=== PATIENT | female | born 1955 | race African-American/Black ===

== ENCOUNTER 2018-03-27 18:57 | Inpatient (IN) | payer OTHER ==
[~2018-03-27 18:57] MED LIST: Iopamidol 370 76% 100 ML VIAL ONE
[2018-03-27 20:01] LABS: INR-International Normal Ratio 1.5; PTT 36.8 SEC (22.9-36.1); Prothrombin Time 17.9 SEC (12.0-14.7)
[2018-03-27 20:04] LABS: #Basophils 0.2 thou/uL (0.0-0.2); #Eosinphils 0.2 thou/uL (0.0-0.7); #Lymphocytes 1.7 thou/uL (1.20-3.40); #Monocytes 0.7 thou/uL (0.11-0.59); #Neutrophils 3.4 thou/uL (1.40-6.50); %Basophils 2.5 % (0.0-1.0); %Eosinophils 3.5 % (0.0-10.0); %Lymphocytes 27.2 % (21.0-51.0); %Monocytes 11.9 % (0.0-10.0); Hemoglobin 11.2 g/dL (12.0-16.0); Mean Corpuscular HGB CONC 34.2 g/dL (32.0-36.0); Mean Corpuscular Hemoglobin 28.6 pg (27.0-31.0); Mean Corpuscular Volume 83.8 fL (78.0-98.0); Mean Platelet Volume 9.7 fL (7.4-10.4); Platelet Count 217 thou/uL (130-400); RBC Distribution Width 12.5 % (11.5-14.5); Red Blood Cell (RBC) Count 3.92 mill/uL (4.20-5.40); White Blood Cell (WBC) Count 6.1 thou/uL (4.8-10.8)
[2018-03-27 20:10] LABS: ALT (SGPT) 11 U/L (8-55); AST (SGOT) 19 U/L (5-34); Albumin 3.6 g/dL (3.5-5.0); Alkaline Phosphatase 87 U/L (40-150); Anion Gap 12 mmol/L (10-20); BUN (Urea Nitrogen) 19 mg/dL (9.8-20.1); Bilirubin, Total 0.4 mg/dL (0.2-1.2); Calc. Creatinine Clearance 0 mL/min (70-130); Carbon Dioxide 23 mmol/L (22-29); Chloride 110 mmol/L (98-107); Estimated GFR-MDRD 87; Globulin 3.3 g/dL (2.4-3.5); Glucose 107 mg/dL (70-105); Potassium 3.6 mmol/L (3.5-5.1); Protein, Total 6.9 g/dL (6.0-8.3); Sodium 141 mmol/L (136-145)
[2018-03-27] MEDS ORDERED: Cyclobenzaprine 10 MG TAB ONE (20:55)
--- NOTE | 2018-03-27 20:55 | CT ---
HISTORY: Left lower quadrant pain. Patient with episodes of hemorrhage. Contrast enhanced CT images of the abdomen and pelvis is obtained. IV contrast was given. Oral contra st was not administered. The lung bases are unremarkable. No evidence of free intraperitoneal air seen. The liver and spleen are unremarkable. The gallbladder is partially contracted. The pancreas is unremarkable. Adrenal glands and kidneys are unremarkable. The duodenum is unremarkable. No dilated loops of small bowel seen. A normal appendix is visualized. Extensive descending and sigmoid colonic diverticulosis is present. I do no see definite evidence of diverticulitis. IMPRESSION: Descending and sigmoid colonic diverticulosis. POS: [facility]
[2018-03-27] MEDS ORDERED: Ondansetron ODT 4 MG TAB SL PRN (23:06)
[2018-03-27] MEDS ORDERED: Ondansetron HCl/PF 4 MG/2 ML Vial IVP PRN (23:06)
[2018-03-27] MEDS ORDERED: Acetaminophen 325 MG TAB PO PRN (23:06)
[2018-03-27 23:20] VITALS: BMI 50.5
[2018-03-28] MEDS ORDERED: Dextrose 5 % And 0.9 % NaCl 1,000 ML IV SCH ×2 (03:30→17:30)
--- NOTE | 2018-03-28 04:14 | HP ---
CHIEF COMPLAINT: GI bleed. HISTORY OF PRESENT ILLNESS: Patient is a 62-year-old -[place] female with a history of chron ic atrial fibrillation, rate controlled on Xarelto, history of asthma, history of obesity, and hypert ension, who came to the hospital with complaints of a GI bleed. Patient stated that patient noticed bright blood per her rectum on night. Patient stated that she had 4 bouts of diarrhea with some clots on night followed by 3-4 bouts of diarrhea with bright blood with clots on Friday . Patient also complained of some left-sided cramping abdominal pain. Patient denies any nausea or vomiting. Patient states that this has never happened to her before. Patient stated her last bowel movement was around 7:00 p.m. last night. Patient states that she did take some ibuprofen sometime t his week, which is the prescription strength ibuprofen, she does not recall the dose of it. PAST MEDICAL HISTORY: 1. Chronic atrial fibrillation on anticoagulation. 2. History of asthma. 3. Morbid obesity. 4. Hypertension. PAST SURGICAL HISTORY: She has had a total abdominal hysterectomy in 1998. MEDICATIONS: I am going off her discharge back in 2017, since patient does not have a list with her right now. Patient takes potassium 20 mEq daily, amlodipine 10 mg daily, Lasix 20 mg twice a day, Fl exeril 5 mg daily p.r.n., carvedilol 25 mg b.i.d., aspirin 81 mg daily, hydralazine 50 mg b.i.d., anna sartan 160 mg b.i.d., Xarelto 20 mg daily, and Singulair 10 mg daily. ALLERGIES: She is allergic to AUGMENTIN and HYDROCODONE. FAMILY HISTORY: No history of early heart disease. SOCIAL HISTORY: She denies any alcohol, drug use, or tobacco use. REVIEW OF SYSTEMS: All negative except for the ones mentioned above in the HPI. PHYSICAL EXAMINATION: VITAL SIGNS: Temperature of 98.1, heart rate of 101, 95% room air, 160/90. GENERAL: She is awake, alert, oriented x3, does not appear in any distress. CARDIOVASCULAR: S1, S2 present. No murmurs, rubs, or gallops. LUNGS: Clear to auscultation, rhonchi or wheezes noted. ABDOMEN: Obese. Bowel sounds are present x2. She has mild pain upon palpation to her left lower qu adrant area. Pedal pulses are present. EXTREMITIES: There is no edema noted to her lower extremities. NEUROLOGIC: No focal neurological deficits noted. SKIN: Intact. No bruises or lesions noted. LABORATORY DATA: She underwent a CAT scan of the abdomen and pelvis with contrast which indicated de scending and sigmoid colon diverticulosis. She has got a white count of 6.1, hemoglobin of 11.2, hem atocrit of 32.9. Chemistry shows sodium of 141, potassium was 3.6, BUN of 19, creatinine 0.81. ASSESSMENT AND PLAN: Patient is a very pleasant 62-year-old female who presents to the hospital with complaints of lower gastrointestinal bleed. 1. Lower gastrointestinal bleed. We will hold the patient's Xarelto for now. Patient was educated on not taking any NSAIDs while on Xarelto this increased the risk of bleeding. We will consult GI. However, patient has not had any bowel movements since 7:00 p.m. last night. We will keep patient n. p.o. We will start her on some gentle hydration, will be careful since patient has a history of mode [id number] tricuspid regurgitation to avoid any fluid overload. 2. History of chronic atrial fibrillation. We will hold off on her blood pressure medications just in case, patient has severe amount of bleeding to avoid any hypotension and we will continue fluids f or now. 3. History of asthma. We will continue her home medications. 4. Deep venous thrombosis prophylaxis. We will put the patient on some SCDs.
[2018-03-28 05:15] LABS: Anion Gap 12 mmol/L (10-20); BUN (Urea Nitrogen) 15 mg/dL (9.8-20.1); Calc. Creatinine Clearance 185 mL/min (70-130); Calcium 8.7 mg/dL (7.8-10.44); Carbon Dioxide 20 mmol/L (22-29); Chloride 110 mmol/L (98-107); Estimated GFR-MDRD Greater than 90; Glucose 102 mg/dL (70-105); Potassium 3.6 mmol/L (3.5-5.1); Sodium 138 mmol/L (136-145)
[2018-03-28] MEDS: Cyclobenzaprine 10 MG TAB PO PRN ×2 (05:32→11:21)
[2018-03-28 05:43] LABS: #Basophils 0.1 thou/uL (0.0-0.2); #Eosinphils 0.2 thou/uL (0.0-0.7); #Lymphocytes 1.8 thou/uL (1.20-3.40); #Monocytes 0.5 thou/uL (0.11-0.59); #Neutrophils 2.4 thou/uL (1.40-6.50); %Basophils 1.5 % (0.0-1.0); %Eosinophils 4.5 % (0.0-10.0); %Lymphocytes 36.4 % (21.0-51.0); %Monocytes 10.2 % (0.0-10.0); %Neutrophils 47.5 % (42.0-75.0); Hemoglobin 10.6 g/dL (12.0-16.0); Mean Corpuscular HGB CONC 32.2 g/dL (32.0-36.0); Mean Corpuscular Hemoglobin 28.7 pg (27.0-31.0); Mean Corpuscular Volume 89.1 fL (78.0-98.0); Mean Platelet Volume 8.9 fL (7.4-10.4); Platelet Count 185 thou/uL (130-400); RBC Distribution Width 13.2 % (11.5-14.5); Red Blood Cell (RBC) Count 3.68 mill/uL (4.20-5.40)
[2018-03-28 09:45] LABS: Hemoglobin 11.2 g/dL (12.0-16.0)
[2018-03-28] MEDS ORDERED: Acetaminophen 500 MG TAB PO SCH (12:45)
[2018-03-28] MEDS: traMADol HCl 50 MG TAB PO PRN (20:31)
[2018-03-28] MEDS: hydrALAZINE 25 MG TAB PO SCH (21:14)
[2018-03-28] MEDS: Carvedilol 25 MG TAB PO SCH (21:14)
[2018-03-28] MEDS: Valsartan 80 MG TAB PO SCH (21:15)
--- NOTE | 2018-03-29 09:02 | CON ---
DATE OF CONSULTATION: 03/28/2018 REFERRING PHYSICIAN: Rupinder Prery M.D., [facility]. REASON FOR CONSULTATION: Abdominal pain, diarrhea, and hematochezia. HISTORY OF PRESENT ILLNESS: Amie Knight is a 62-year-old black female with history of atrial fib rillation on Xarelto. The patient developed acute abdominal pain with diarrhea, hematochezia F riday evening. She came to the ER and hospitalized. The patient's pain is diffuse and cramping in n ature, but more over in left lower quadrant. She never had any abdominal pain before. The patient h ad multiple loose stools and also hematochezia. She came to the ER and hospitalized. She says she h as been taking ibuprofen off and on recently for some back pain. The patient had colonoscopy in the [facility] two years ago and was told to be negative. She was told she should co me back in 10 years for a repeat colonoscopy. The patient does not remember anybody telling that she has any hemorrhoids or diverticulitis. The patient is n.p.o. Her symptoms markedly improved. Her abdominal pain has markedly resolved and she has very minimal pain over the left lower quadrant. She has no stools overnight. She had no more rectal bleeding. Her blood count is stable around 11.2. She had no fever or chills. No other relevant symptoms. ALLERGIES: AUGMENTIN and HYDROCODONE. SOCIAL HISTORY: Patient does not smoke or drink alcohol. MEDICAL ILLNESSES: 1. Obesity. 2. Hypertension. 3. History of asthma and does see Dr. Luna. 4. Atrial fibrillation, on Xarelto. SURGERIES: Status post hysterectomy in 1998. MEDICATIONS: List reviewed. FAMILY HISTORY: There is no family history of any cancer, heart disease, CVA. REVIEW OF SYSTEMS: A 10-point system review. Constitutional: No history of weight loss. No fever. She has good exercise tolerance. Respiratory System: History of asthma, but at the present time, no wheezing, no coughing, no hemoptysis. Cardiovascular System: No chest pain, no palpitation, no d yspnea, orthopnea or PND. Gastrointestinal: Abdominal pain, hematochezia, diarrhea. . Genito urinary: No hematuria, dysuria or frequent urination. Musculoskeletal: History of back pain and oc casional headache. Neuropsychiatry: Unremarkable. PHYSICAL EXAMINATION: GENERAL: Patient is obese, appears very comfortable. She is awake, alert, oriented to time, place a nd person. VITAL SIGNS: She is afebrile, temperature 97.7 degrees Fahrenheit, pulse 88, blood pressure is 166/9 4. HEENT: Conjunctivae clear. NECK: Supple. No adenitis or thyromegaly noted. CLINICAL IMPRESSION: This is a 62-year-old black female hospitalized with abdominal pain, diarrhea a nd hematochezia. She most likely has infectious diarrhea. Her bleeding has stopped. Her blood coun t is actually stable. Admitting hemoglobin 11.2 and today 11.2. Hematocrit 33.3, WBC 6,100, and dl telet count 217,000. Chem-7 is actually pretty normal. Based on the history and physical, I believe she has infectious diarrhea, which seems to have resolved. She had a colonoscopy two years ago and I do not see a reason to repeat a colonoscopy. This was conveyed to the patient and actually agrees with the above recommendation. RECOMMENDATIONS: 1. Regular diet. 2. If she tolerates diet and if she has no clinical symptoms, consider discharge either today or himanshu orrow.
[2018-03-29] MEDS: Cyclobenzaprine 10 MG TAB PO PRN ×2 (09:56→21:12)
[2018-03-29] MEDS: hydrALAZINE 25 MG TAB PO SCH ×2 (09:56→21:14)
[2018-03-29] MEDS: Valsartan 80 MG TAB PO SCH ×2 (09:56→21:13)
[2018-03-29] MEDS: Carvedilol 25 MG TAB PO SCH ×2 (09:57→21:13)
[2018-03-29] MEDS: Amlodipine 10 MG TAB PO SCH (09:57)
[2018-03-29] MEDS: traMADol HCl 50 MG TAB PO PRN ×2 (09:57→21:13)
--- NOTE | 2018-03-29 13:51 | PDOC.PN ---
- Subjective Encounter Start Date: 03/29/18 Encounter Start Time: 13:50 Subjective: no more stools. feels better -: no dizziness/SOB - Objective Resuscitation Status: Resuscitation Status FULL:Full Resuscitation MAR Reviewed: Yes Vital Signs & Weight: Vital Signs (12 hours) Temp Pulse Resp BP BP Pulse Ox 03/29/18 09:57 66 141/80 H 03/29/18 09:56 66 141/80 H 03/29/18 07:10 97.5 F L 66 16 141/80 H 97 03/29/18 03:30 97.5 F L 57 L 17 125/57 L 96 Weight Weight 285 lb I&O: 03/28/18 03/29/18 03/30/18 06:59 06:59 06:59 Intake Total 120 Output Total 400 Balance -280 Result Diagrams: 03/28/18 16:00 03/28/18 04:53 Additional Labs: labs reviewed Phys Exam - Physical Examination Constitutional: NAD HEENT: PERRLA, moist MMs, sclera anicteric, oral pharynx no lesions Neck: no nodes, no JVD, supple, full ROM Respiratory: no wheezing, no rales, no rhonchi, clear to auscultation bilateral Cardiovascular: no significant murmur, no rub, irregular Gastrointestinal: soft, non-tender, no distention, positive bowel sounds Musculoskeletal: no edema, pulses present Neurological: non-focal, normal sensation, moves all 4 limbs Psychiatric: normal affect, A&O x 3 Skin: no rash Dx/Plan (1) Lower GI bleed Code(s): K92.2 - GASTROINTESTINAL HEMORRHAGE, UNSPECIFIED Status: Acute (2) Chronic diastolic heart failure due to valvular disease Code(s): I50.32 - CHRONIC DIASTOLIC (CONGESTIVE) HEART FAILURE; I38 - ENDOCARDITIS, VALVE UNSPECIFIED Status: Chronic (3) Chronic anticoagulation Code(s): Z79.01 - CARE HOME (CURRENT) USE OF ANTICOAGULANTS Status: Chronic Comment: Xarelto on hold for GI bleed (4) Chronic atrial fibrillation Code(s): I48.2 - CHRONIC ATRIAL FIBRILLATION Status: Chronic (5) HTN (hypertension) Code(s): I10 - ESSENTIAL (PRIMARY) HYPERTENSION Status: Chronic Comment: Labile, increase Coreg 25mg BID, may need additional titration of BP regimen (6) Normocytic anemia Code(s): D64.9 - ANEMIA, UNSPECIFIED Status: Chronic - Plan DVT proph w/SCDs Cont to hold xarelto.GI recs noted.? infectious bleed but no stool studies -: not o any antibiotic if suspecting infectiouss? Viral Vs bacterial -: Pt w extensive diverticulosis on CT.also on anticoahulation -: will consult her own GI tomorrow as pt worried to restart xarelto -: Monitor for any more bleed & H/H overnight * .Remain sin a-fib.cont tele monitoring * am labs Review of Systems - Review of Systems Constitutional: negative: fever, chills, sweats, weakness, malaise, other ENT: negative: Ear Pain, Ear Discharge, Nose Pain, Nose Discharge, Nose Congestion, Mouth Pain, Mouth Swelling, Throat Pain, Throat Swelling, Other Respiratory: negative: Cough, Dry, Shortness of Breath, Hemoptysis, SOB with Excertion, Pleuritic Pain, Sputum, Wheezing Cardiovascular: negative: chest pain, palpitations, orthopnea, paroxysmal nocturnal dyspnea, edema, light headedness, other Gastrointestinal: negative: Nausea, Vomiting, Abdominal Pain, Diarrhea, Constipation, Melena, Hematochezia, Other Genitourinary: negative: Dysuria, Frequency, Incontinence, Hematuria, Retention , Other Musculoskeletal: negative: Neck Pain, Shoulder Pain, Arm Pain, Back Pain, Hand Pain, Leg Pain, Foot Pain, Other Neurological: negative: Weakness, Numbness, Incoordination, Change in Speech, Confusion, Seizures, Other - Medications/Allergies Allergies/Adverse Reactions: Allergies Allergy/AdvReac Type Severity Reaction Status Date / Time amoxicillin [From Augmentin] Allergy Rash Verified 03/27/18 23:14 clavulanic acid Allergy Rash Verified 03/27/18 23:14 [From Augmentin] hydrocodone AdvReac Severe Nausea Verified 03/27/18 23:14 Medications: Current Medications Amlodipine Besylate (Norvasc) 10 mg PO DAILY [facility] Last Admin: 03/29/18 09:57 Dose: 10 mg Carvedilol (Coreg) 25 mg PO BID [facility] Last Admin: 03/29/18 09:57 Dose: 25 mg Cyclobenzaprine HCl (Flexeril) 5 mg PO Q6H PRN PRN Reason: Muscle Spasm Last Admin: 03/29/18 09:56 Dose: 5 mg Hydralazine HCl (Apresoline) 50 mg PO BID [facility] Last Admin: 03/29/18 09:56 Dose: 50 mg Sodium Chloride (Flush - Normal Saline) 10 ml IVF Q12HR [facility] Last Admin: 03/29/18 09:58 Dose: 10 ml Sodium Chloride (Flush - Normal Saline) 10 ml IVF PRN PRN PRN Reason: Saline Flush Tramadol HCl (Ultram) 100 mg PO Q6H PRN PRN Reason: Back pain Last Admin: 03/29/18 09:57 Dose: 100 mg Valsartan (Diovan) 160 mg PO BID [facility] Last Admin: 03/29/18 09:56 Dose: 160 mg
[2018-03-30] MEDS: traMADol HCl 50 MG TAB PO PRN (04:54)
[2018-03-30] MEDS: Cyclobenzaprine 10 MG TAB PO PRN (04:54)
[2018-03-30 05:56] LABS: Anion Gap 10 mmol/L (10-20); BUN (Urea Nitrogen) 18 mg/dL (9.8-20.1); Calc. Creatinine Clearance 165 mL/min (70-130); Calcium 9.1 mg/dL (7.8-10.44); Carbon Dioxide 23 mmol/L (22-29); Chloride 106 mmol/L (98-107); Estimated GFR-MDRD Greater than 90; Glucose 96 mg/dL (70-105); Potassium 3.9 mmol/L (3.5-5.1); Sodium 135 mmol/L (136-145)
[2018-03-30 06:00] LABS: Hemoglobin 10.7 g/dL (12.0-16.0)
[2018-03-30 08:07] VITALS: TEMP 97.5
[2018-03-30] MEDS: Carvedilol 25 MG TAB PO SCH (08:37)
[2018-03-30] MEDS: hydrALAZINE 25 MG TAB PO SCH (08:37)
[2018-03-30] MEDS: Valsartan 80 MG TAB PO SCH (08:38)
[2018-03-30] MEDS: Amlodipine 10 MG TAB PO SCH (08:38)
[2018-03-30 12:17] VITALS: BP 98/52
--- NOTE | 2018-03-31 | DIS ---
DATE OF ADMISSION: 03/28/2018 DATE OF DISCHARGE: 03/30/2018 CONDITION AT THE TIME OF DISCHARGE: Stable and improved. DISCHARGE DIAGNOSES: 1. Hematochezia. 2. Mild chronic anemia without any acute drop. 3. History of chronic atrial fibrillation, on chronic anticoagulation. 4. Hypertension. PRIMARY CARE PHYSICIAN: Bill Huang M.D. IN-HOUSE CONSULTATIONS: Gastroenterology, Dr. Marino. PROCEDURES DONE IN THE HOSPITAL: Include CT scan of the abdomen and pelvis which showed diverticulos is in the descending and sigmoid colon without any diverticulitis. DISCHARGE MEDICATIONS: Remain the same as home medication. After consultation with Gastroenterology , she is being restarted on Xarelto as there is no reoccurrence of any hematochezia in the hospital a nd her H&H has been stable. Discharge medications as follows: Klor-Con 20 mEq daily, amlodipine 10 mg daily, Lasix 40 mg p.o. b.i.d., cyclobenzaprine 5 mg daily p.r.n., Coreg 25 mg p.o. b.i.d., aspiri n 81 mg daily, hydralazine 50 mg p.o. b.i.d., valsartan 160 mg p.o. daily, Xarelto 20 mg daily, and S ingulair 10 mg daily. HISTORY OF PRESENTING ILLNESS: Ms. Knight is a very pleasant 62-year-old female with past medical h istory of atrial fibrillation and was on chronic anticoagulation and hypertension, [facility] with complaints of multiple bloody bowel movements night prior to presentation. Sh e also complained of some left-sided crampy abdominal pain. She was hemodynamically stable at the me of presentation. Her CT scan of the abdomen and pelvis was done in the emergency room, which show ed diverticulosis without any evidence of diverticulitis. Her hemoglobin on presentation was 11.2. She was admitted for lower GI bleed and Xarelto was put on hold and GI was consulted. Please see adm ission history and physical for further details. HOSPITAL COURSE: The patient remained hemodynamically stable and had no bowel movements on the day o f admission and then subsequently she had a normal bowel movement. The stool was sent for infectious etiology and it was negative for all of the usual infectious pathogens. Dr. Mraino saw the patie nt and he did not have any new recommendation except to check stool studies for infection. He recomm ended advancing the diet which was done and the patient tolerated it very well. On the day of discharge, she has had a normal stool, H&H is stable and she is hemodynamically stable and GI has cleared her for discharge to home and they have okay to resume the Xarelto. I have instru cted her to follow up with Dr. Marino at the gastroenterology clinic in the outpatient setting as well. The patient has had a colonoscopy about 2 years ago as per the patient, but she does not remem belkis where it was done. She was seen and examined prior to discharge. PHYSICAL EXAMINATION: VITAL SIGNS: This morning, temperature 97.5, pulse of 73, respirations 18, saturating 98% on room ai r, blood pressure 98/52. GENERAL: No acute distress, awake, alert, oriented x3. She is sitting up in bed, reading newspaper. CHEST: Clear to auscultation without any wheezing, rales or rhonchi. CARDIOVASCULAR: Rate and rhythm is regular without any murmur, rubs or gallops. ABDOMEN: Slightly tender to palpation in the left lower quadrant. LABORATORY DATA: Her hemoglobin is 10.7, which was 11.2 on presentation. INR 1.5. Serum chemistrie s showed sodium of 135, otherwise unremarkable. Her stool studies are negative. Her occult blood te sting in the stool was positive. Discharge plan was discussed with the patient who verbalized understanding. She will also follow up with her primary care physician in 7-10 days. Total time spent 32 minutes.
== END 2018-03-30 13:04 | disposition home or self-care (01) | DRG 378 ==
LOC: SCSER 18:57 → 2NO 22:44 → UNDODISIN 03-28 17:19
PROVIDERS: ADMIT Internal Medicine; ATTEND Internal Medicine
DX: K92.1 Melena (principal); A09 Infectious gastroenteritis and colitis, unspecified; I50.32 Chronic diastolic (congestive) heart failure; Z68.43 Body mass index [BMI] 50.0-59.9, adult; D64.9 Anemia, unspecified; I48.2 Chronic atrial fibrillation; K57.30 Diverticulosis of large intestine without perforation or abscess without bleeding; I11.0 Hypertensive heart disease with heart failure; E66.01 Morbid (severe) obesity due to excess calories; J45.909 Unspecified asthma, uncomplicated; Z79.01 Long term (current) use of anticoagulants
CPT/HCPCS: 36415; 74177; 80048; 80053; 82274; 83630; 85014; 85018; 85025; 85610; 85730; 87045; 87046; 87449; 87899; A4216

== ENCOUNTER 2019-01-27 06:21 | Outpatient (CLI) | payer OTHER ==
[2019-01-27 10:27] LABS: #Basophils 0.1 thou/uL (0.0-0.2); #Eosinphils 0.2 thou/uL (0.0-0.7); #Lymphocytes 1.5 thou/uL (1.20-3.40); #Monocytes 0.6 thou/uL (0.11-0.59); %Basophils 1.2 % (0.0-1.0); %Eosinophils 3.8 % (0.0-10.0); %Lymphocytes 27.8 % (21.0-51.0); %Monocytes 10.9 % (0.0-10.0); %Neutrophils 56.2 % (42.0-75.0); Hemoglobin 11.3 g/dL (12.0-16.0); Mean Corpuscular HGB CONC 32.4 g/dL (32.0-36.0); Mean Corpuscular Hemoglobin 29.5 pg (27.0-31.0); Mean Corpuscular Volume 91.1 fL (78.0-98.0); Mean Platelet Volume 8.5 fL (7.4-10.4); Platelet Count 206 thou/uL (130-400); RBC Distribution Width 13.8 % (11.5-14.5); Red Blood Cell (RBC) Count 3.82 mill/uL (4.20-5.40); White Blood Cell (WBC) Count 5.3 thou/uL (4.8-10.8)
[2019-01-27 10:37] LABS: ALT (SGPT) 16 U/L (8-55); AST (SGOT) 20 U/L (5-34); Albumin 3.7 g/dL (3.4-4.8); Alkaline Phosphatase 71 U/L (40-150); Anion Gap 9 mmol/L (10-20); BUN (Urea Nitrogen) 25 mg/dL (9.8-20.1); Bilirubin, Total 0.9 mg/dL (0.2-1.2); Calc. Creatinine Clearance 0 mL/min (70-130); Calcium 9.4 mg/dL (7.8-10.44); Carbon Dioxide 27 mmol/L (23-31); Cardiac Risk 2.1 (Less than 4.5); Chloride 108 mmol/L (98-107); Cholesterol 146 mg/dl (< 200 Desired); Estimated GFR-MDRD 71; Globulin 3.3 g/dL (2.4-3.5); Glucose 101 mg/dL (80-115); HDL Cholesterol 70 mg/dL (>60 Neg Risk); LDL Cholesterol, Calculated 69 mg/dL; Potassium 3.8 mmol/L (3.5-5.1); Sodium 140 mmol/L (136-145); Triglycerides 36 mg/dL (Less than 150)
== END 2019-01-27 06:22 | disposition home or self-care (01) ==
LOC: LABBT 06:21
PROVIDERS: ATTEND Internal Medicine Cardiovascular Disease
DX: Z01.812 Encounter for preprocedural laboratory examination (principal); R94.39 Abnormal result of other cardiovascular function study
CPT/HCPCS: 80053; 80061; 85025

== ENCOUNTER → 2019-02-01 | Day surgery (SDC) | payer OTHER ==
[2019-01-27 09:41] VITALS: BMI 49.9
[~2019-02-01] MED LIST changes: +Fentanyl 100 MCG/2 ML VIAL ONE; +Heparin 10,000 UNITS/1 ML VIAL ONE; +Iopamidol 370 76% 50 ML VIAL FS ONE; +Midazolam HCl 2 mg/2 ml Vial ONE; +Protamine Sulfate 50 MG/5 ML VIAL ONE; +hydrALAZINE 20 MG/ML VIAL ONE
== END ==
LOC: CCL 05:35
PROVIDERS: ATTEND Internal Medicine Cardiovascular Disease
PROC: B2111ZZ Fluoroscopy of Multiple Coronary Arteries using Low Osmolar Contrast (ICD-10-PCS; principal; 2019-02-01)
PROC: 4A023N7 Measurement of Cardiac Sampling and Pressure, Left Heart, Percutaneous Approach (ICD-10-PCS; principal; 2019-02-01)
DX: I42.9 Cardiomyopathy, unspecified (principal); I48.0 Paroxysmal atrial fibrillation; I34.0 Nonrheumatic mitral (valve) insufficiency; I11.0 Hypertensive heart disease with heart failure; I50.42 Chronic combined systolic (congestive) and diastolic (congestive) heart failure; E66.01 Morbid (severe) obesity due to excess calories; Z68.42 Body mass index [BMI] 45.0-49.9, adult; Z79.01 Long term (current) use of anticoagulants; Z79.82 Long term (current) use of aspirin; Z79.899 Other long term (current) drug therapy; Z88.0 Allergy status to penicillin; Z88.5 Allergy status to narcotic agent; Z88.8 Allergy status to other drugs, medicaments and biological substances; Z91.040 Latex allergy status; Z91.048 Other nonmedicinal substance allergy status
CPT/HCPCS: 75733; 85347; 93458; 99152; C1769; J0360; J1644; J2250; J2720; J3010; Q9967

== ENCOUNTER 2019-04-20 09:50 | Outpatient (CLI) | payer OTHER ==
--- NOTE | 2019-04-20 11:32 | MMO ---
Bilateral MAMMO Bilat Screen [facility]. CLINICAL HISTORY: Patient is 63 years old and is seen for screening. The patient has the following family history of breast cancer: 3 maternal aunts. The patient has no personal history of cancer. VIEWS: The views performed were: bilateral craniocaudal with tomosynthesis; bilateral mediolateral oblique with tomosynthesis; and left mediolateral oblique. FILMS COMPARED: The present examination has been compared to prior imaging studies performed at [facility] on 09/05/2011, 03/04/2014 and 03/10/2017, and at [facility] on 08/19/2000. MAMMOGRAM FINDINGS: The breasts are almost entirely fat. There are stable benign appearing calcifications seen in both breasts. There are no suspicious masses, suspicious calcifications, or new areas of architectural distortion. IMPRESSION: THERE IS NO MAMMOGRAPHIC EVIDENCE OF MALIGNANCY. A ROUTINE FOLLOW-UP MAMMOGRAM IN 1 YEAR IS RECOMMENDED. THE RESULTS OF THIS EXAM WERE SENT TO THE PATIENT. ACR BI-RADS Category 2 - Benign finding MAMMOGRAPHY NOTE: 1. A negative mammogram report should not delay a biopsy if a dominant of clinically suspicious mass is present. 2. Approximately 10% to 15% of breast cancers are not detected by mammography. 3. Adenosis and dense breasts may obscure an underlying neoplasm. Reported by: KITA NIEVES MD Electonically Signed: [id number]
== END 2019-04-20 09:51 | disposition home or self-care (01) ==
LOC: BICMAMMO 09:50
PROVIDERS: ATTEND Family Medicine
DX: Z12.31 Encounter for screening mammogram for malignant neoplasm of breast (principal); Z80.3 Family history of malignant neoplasm of breast
CPT/HCPCS: 77063; 77067

== ENCOUNTER 2019-07-22 05:51 | Day surgery (SDC) | payer OTHER ==
[2019-07-21 09:43] VITALS: BMI 49.7
--- NOTE | 2019-07-22 17:24 | EKG ---
Test Reason : PREOP Blood Pressure : / mmHG Vent. Rate : 061 BPM Atrial Rate : 061 BPM P-R Int : 180 ms QRS Dur : 098 ms QT Int : 458 ms P-R-T Axes : -01 -03 127 degrees QTc Int : 461 ms Electronic atrial pacemaker T wave abnormality, consider lateral ischemia Abnormal ECG When compared with ECG of 09-FEB-2017 16:55, Electronic atrial pacemaker has replaced Ectopic atrial rhythm Confirmed by DR. Rhona PEREZ ([id number]) on 07/22/2019 5:24:13 PM Referred By: IRAIDA Confirmed By:DR. Rhona PEREZ
== END 2019-07-22 07:45 | disposition home or self-care (01) ==
LOC: CCL 05:51
PROVIDERS: ATTEND Internal Medicine Cardiovascular Disease
DX: I48.0 Paroxysmal atrial fibrillation (principal); Z53.8 Procedure and treatment not carried out for other reasons; Z79.01 Long term (current) use of anticoagulants; Z79.82 Long term (current) use of aspirin; Z79.899 Other long term (current) drug therapy; Z88.0 Allergy status to penicillin; Z88.5 Allergy status to narcotic agent; Z88.8 Allergy status to other drugs, medicaments and biological substances; Z91.040 Latex allergy status; Z91.048 Other nonmedicinal substance allergy status
CPT/HCPCS: 93005; 93010

== ENCOUNTER 2022-03-27 12:33 | Outpatient (CLI) | payer BC | END 2022-03-27 12:34 | disposition home or self-care (01) | LOC: SCSRAD 12:33 | PROVIDERS: ATTEND Family Medicine | DX: R05.9 Cough, unspecified (principal) | CPT/HCPCS: 71046 ==

== ENCOUNTER 2022-09-27 09:51 | Outpatient (CLI) | payer BC | END 2022-09-27 09:52 | disposition home or self-care (01) | LOC: RAD 09:51 | PROVIDERS: ATTEND Internal Medicine | DX: R06.00 Dyspnea, unspecified (principal) | CPT/HCPCS: 71046 ==

== ENCOUNTER 2023-10-01 09:52 | Outpatient (CLI) | payer MEDICARE | END 2023-10-01 09:53 | disposition home or self-care (01) | LOC: BICCT 09:52 | PROVIDERS: ATTEND Internal Medicine | DX: R91.1 Solitary pulmonary nodule (principal); J84.10 Pulmonary fibrosis, unspecified; I31.39 Other pericardial effusion (noninflammatory) | CPT/HCPCS: 71250 ==